=== PATIENT | male | born 1960 | race African-American/Black ===

== ENCOUNTER 2019-08-08 14:01 | Emergency (ER) | payer OTHER ==
[~2019-08-08] VITALS: Ht 180.3 cm; Wt 81.7 kg
[2019-08-08 14:39] VITALS: BP 145/102
[2019-08-08] MEDS ORDERED: TYLENOL WITH CO1 TA1 PO (14:50)
[2019-08-08] MEDS ORDERED: CLINDAMYCIN HC300 MG PO (14:50)
[2019-08-08 15:05] LABS: AMP/METHAMP Negative (Negative); BARBITURATES Negative (Negative); BENZODIAZEPINES Negative (Negative); COCAINE Negative (Negative); METHADONE Negative (Negative); OPIATES Negative (Negative); PCP Negative (Negative)
== END 2019-08-08 16:50 | disposition home or self-care (01) ==
LOC: ER 14:01
PROVIDERS: Emergency Medicine
DX: L03.115 Cellulitis of right lower limb (principal); M79.605 Pain in left leg

== ENCOUNTER 2019-08-29 12:11 | Emergency (ER) | payer OTHER ==
[~2019-08-29] VITALS: Ht 180.3 cm; Wt 79.4 kg
[~2019-08-29 12:11] MED LIST: CLINDAMYCIN HC300 MG PO; TYLENOL WITH CO1 TA1 PO
[2019-08-29] MEDS ORDERED: TYLENOL WITH CO1 TA1 PO (13:33)
[2019-08-29 14:02] VITALS: BP 124/79
== END 2019-08-29 14:04 | disposition home or self-care (01) ==
LOC: ER 12:11
DX: L03.115 Cellulitis of right lower limb (principal); L03.116 Cellulitis of left lower limb; Z79.2 Long term (current) use of antibiotics; Z79.899 Other long term (current) drug therapy; Z76.0 Encounter for issue of repeat prescription